=== PATIENT | male | born 1950 | race Caucasian/White ===

== ENCOUNTER 2018-12-24 16:28 | Inpatient (IN) | payer OTHER ==
[~2018-12-24] VITALS: Ht 167.6 cm; Wt 82.6 kg
[2018-12-24] MEDS ORDERED: XANAX 0.25 MG0.25 MG PO ×2 (18:16→18:20)
[2018-12-24] MEDS ORDERED: ASPIR 8181 M1 PO (18:17)
[2018-12-24] MEDS ORDERED: AZELASTINE137 MCG/0. INH (18:22)
[2018-12-24] MEDS ORDERED: FLEXERIL PO (18:24)
[2018-12-24] MEDS ORDERED: CITALOPRAM HBR40 MG PO (18:24)
[2018-12-24] MEDS ORDERED: HYDROCODON-ACE1 EAC5 PO (18:25)
[2018-12-24] MEDS ORDERED: MOBIC15 MG PO (18:26)
[2018-12-24] MEDS ORDERED: BENICAR20 MG PO (18:26)
[2018-12-24] MEDS ORDERED: LISINOPRIL10 MG PO (18:26)
[2018-12-24] MEDS ORDERED: PROSCAR 5MG TABL5 MG PO (18:27)
[2018-12-24] MEDS ORDERED: PRAVACHOL40 MG PO (18:27)
[2018-12-24] MEDS ORDERED: TRAZODONE HCL100 MG PO (18:28)
[2018-12-24] MEDS ORDERED: ZANTAC 150MG T150 MG PO (18:29)
--- NOTE | 2018-12-24 19:06 | NUR ---
PT A DIRECT ADMIT FROM [place]. ADMISSION HX AND ASSESSMENT COMPLETED. ALERT AND ORIENTED. DENIED HAVING ANY CHEST PAIN. SEEN BY DR. ERICKSON. ORDERS NOTED.
[2018-12-24 19:55] VITALS: BP 130/60
[2018-12-24 20:17] LABS: CHOLESTEROL 125 mg/dL (<200); HDL CHOLESTEROL 30 mg/dL (>40); LDL CHOLESTEROL 81 mg/dL (<100); TC:HDL 4.2 Ratio (Not establshd); TRIGLYCERIDE 71 mg/dL (<150); TROPONIN-I 0.09 ng/mL (<0.06); VLDL 14 mg/dL (<40)
[2018-12-24 20:19] LABS: SERUM ASSESSMENT Clear
[2018-12-24 23:54] VITALS: BP 118/58
[2018-12-25 02:52] LABS: ALBUMIN 3.2 g/dL (3.4-5.0); CREATININE 1.2 mg/dL (0.7-1.3); PHOSPHORUS 3.6 mg/dL (2.5-4.9); TROPONIN-I 0.08 ng/mL (<0.06)
[2018-12-25 04:55] VITALS: BP 119/59
--- NOTE | 2018-12-25 05:33 | NUR ---
1900. pt alert and oriented. at bedside. no kasie yg reported. Troponin x 2 0.09 and 0.008. Stand by with ambulation to bathroom. Admission orders acklowledged and orders implemented. pt currently in Heparin drip. Denies nausea or vomiting or any pain. Regularly uses trazodone for sleep but refused last night because pt had not slept previous day. No further c/o reported. anxious about pt well being. Will continue to follow plan of care.
[2018-12-25 08:51] VITALS: BP 127/62
--- NOTE | 2018-12-25 08:56 | EKG ---
[address] [address] ELECTROCARDIOGRAM REPORT Name: MELINA NAVARRO Room #: 210-P ADM IN M.R.#: [id number] ������������������ Admission: 12/24/18 ������������������ Attend Phys: Ness Hopper Discharge: ������������������ Date of : 52 Report #: [id number] ����������������������������������������������������������������� [id number] THIS REPORT FOR: //name// [facility] Test Date: 2018-12-24 Test Time: 18:31:45 Pat Name: MELINA NAVARRO Department: Room: 210 P Gender: M Educational Guidance Counselor: ROBERT : 1950 Requested By: Ness Hopper Order Number: [id number] MD: Charlie Mattson Measurements Intervals [place] Rate: 60 P: 68 VT: 170 QRS: 14 QRSD: 86 T: 62 QT: 424 QTc: 424 Interpretive Statements Sinus rhythm Normal tracing No previous ECG available for comparison Electronically Signed On 12-25-2018 8:56:27 CDT by Charlie Mattson [email or web address] ��������������������������������������������� <ELECTRONICALLY SIGNED> ���������������������������������������� By: Charlie Mattson MD, [facility] ��������������������������������������������� 12/25/18 0856 1831 1831 Charlie Mattson MD, FACC /EPI
[2018-12-25 09:53] VITALS: BP 127/62
[2018-12-25 12:16] VITALS: BP 142/68
[2018-12-25 17:41] VITALS: BP 149/73
--- NOTE | 2018-12-25 17:56 | NUR ---
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 RIGHT GROIN SITE CDI, NO HEMATOMA. PT CONTINUES TO BE ALERT AND ORIENTED, VSS, NO C/O PAIN, DENIES CP, SOB. O2 SATS WNL ON ROOM AIR. WILL ACKNOWLEDGE AND IMPLEMENT ORDERS. CONTINUING TO MONITOR AND FOLLOW POC.
[2018-12-25 19:55] VITALS: BP 134/58
[2018-12-26 00:05] LABS: GLYCOHEMOGLOBIN (HGB A1C) 5.7 % (4.8-5.6)
[2018-12-26 00:15] VITALS: BP 129/65
--- NOTE | 2018-12-26 03:48 | NUR ---
PT POST CARDIAC CATH. ALERT AND ORIENTED. DENIES PAIN VITALS STABLE w/ LOW HR. OFF BEDREST AT 2029. GROIN SITE CLEAN DRY AND INTACT. SINUS RHYTHM/ SINUS SYDNEE ON THE MONITOR. EVENING METOPROLOL HELD, HR 50. ANTICIPATE DC TODAY. UP AD JACLYN. OTHER ASSESSMENTS DOCUMENTED. NO FURTHER C/O REPORTED WILL CONTINUE WITH POC.
[2018-12-26 03:51] LABS: ALBUMIN 3.3 g/dL (3.4-5.0); CREATININE 0.9 mg/dL (0.7-1.3); POTASSIUM 4.1 mmol/L (3.5-5.1); TOTAL BILIRUBIN 0.2 mg/dL (<0.1-1.0); TOTAL PROTEIN 6.1 g/dL (6.4-8.2); TROPONIN-I 0.06 ng/mL (<0.06)
[2018-12-26 04:35] VITALS: BP 148/66
[2018-12-26 05:03] LABS: HEMATOCRIT 39.3 % (42.0-52.0); HEMOGLOBIN 13.6 gm/dL (14.0-18.0); MCH 31.8 pg (26.0-34.0); MCHC 34.7 g/dL (28.0-37.0); MCV 91.5 fL (80.0-100.0); RBC 4.3 mil/uL (4.50-6.00); RDW 13.7 % (10.5-14.5); WBC 7.4 thou/uL (4.0-11.0)
[2018-12-26 08:00] VITALS: BP 137/75
[2018-12-26] MEDS ORDERED: PRAVACHOL40 MG PO (09:02)
[2018-12-26] MEDS ORDERED: CLOPIDOGREL75 MG PO (09:02)
--- NOTE | 2018-12-26 09:23 | EKG ---
[place] [address] [facility] [place] [address] ELECTROCARDIOGRAM REPORT Name: MELINA NAVARRO Room #: 210-P ADM IN M.R.#: [id number] ������������������ Admission: 12/24/18 ������������������ Attend Phys: Ness Hopper Discharge: ������������������ Date of : 52 Report #: [id number] ����������������������������������������������������������������� [id number] THIS REPORT FOR: //name// [facility] Test Date: 2018-12-26 Test Time: 07:29:52 Pat Name: MELINA NAVARRO Department: Room: 210 P Gender: M Physician Relations Manager: ETELVINA : 1950 Requested By: Juliocesar Gregory Order Number: [id number] MD: Charlie Mattson Measurements Intervals [place] Rate: 55 P: 77 CT: 173 QRS: 24 QRSD: 85 T: 64 QT: 434 QTc: 416 Interpretive Statements Sinus rhythm Abnormal R-wave progression, early transition Baseline wander in lead(s) V3 Compared to ECG 12/24/2018 18:31:45 No significant changes Electronically Signed On 12-26-2018 9:23:32 CDT by Charlie Mattson [email or web address] ��������������������������������������������� <ELECTRONICALLY SIGNED> ���������������������������������������� By: Charlie Mattson MD, [facility] ��������������������������������������������� 05/03/09 923 8 8 Charlie Mattson MD, [facility] /EPI
--- NOTE | 2018-12-26 09:35 | CATHLAB ---
[facility] [place] [employer] [place] [address] INVASIVE PROCEDURE REPORT Name: MELINA NAVARRO Room #: 210-P ADM IN M.R.#: [id number] ������������� Admission: 12/24/18 ������������� Attend Phys: Ness Araujo Discharge: ��� ������������� ��� Date of : 52 Date of Service: 12/26/18 0935 �� Report #: [id number] �������� ��������������������������������������������[id number] THIS REPORT FOR: //name// APPROVED REPORT Study performed: 12/25/2018 16:04:07 Patient Details The patient is a 68 year-old male Event Personnel Juliocesar Gregory Reporting Lead, Sabrina Cabrera, Siddharth Mendes RN, Irma Garcia RN, Sarahy Potts RTR, GROCERY SACKER Scrub Procedures Performed Left Heart Cath w/or w/o Coronaries [id number] [facility] [address] w/wo Plasty Single RCA [id number] Indication Non-STEMI , Unstable angina , Chest pain Risk Factors Hypercholesterolemia, Hypertension, Tobacco History () Procedure Narrative The Right Groin^ was infiltrated with 1% Lidocaine subcutaneous anesthesia. A 4FR MULTIPACK JR 4/JL 4/PIG #[id number] sheath was inserted into the RFA^. Coronary angiography was performed using coronary diagnostic catheters. The right coronary system was accessed and visualized with a JR4 catheter. The left coronary system was accessed and visualized with a JL4 catheter. The left ventricle was accessed and visualized with a PIGTAIL catheter. Closure device was deployed with a Fr MYNXGRIP 6/7F #[id number]. The patient tolerated the procedure well and there were no complications associated with the procedure. There was no hematoma. Intraoperative Conscious Sedation Sedation start time: 1613 Case end Time: 1713 Fentanyl 50 mcg Versed 1 mg Fluoro Time: 17.90 minutes Dose: DAP 09790.00 cGycm2 3329 mGy Contrast Type and Amount: Omnipaque 215 ml [facility] [employer] [place] [address] INVASIVE PROCEDURE REPORT Name: KELI NAVARROUGHN Room #: 210-[facility] IN M.R.#: [id number] ������������� Admission: 12/24/18 ������������� Attend Phys: Ness Araujo Discharge: ��� ������������� ��� Date of : 52 Date of Service: 12/26/18 0935 �� Report #: [id number] �������� ��������������������������������������������[id number] Coronary Angiography The patient's coronary anatomy is right dominant. Diagnostic Cath Left Main This is a large caliber vessel, patent with no flow-limiting lesions. LAD The LAD is a moderate size caliber vessel, traversing the anterior wall and wrapping around the apex. There is mild disease in the proximal segment, 20%. Diagonal 1 This is a patent vessel, with no flow-limiting lesions. Circumflex This is a patent vessel, with no flow-limiting lesions. OM1 This is a moderate size caliber vessel, patent with no flow-limiting lesions. This vessel divides into 2 branches as it travels down the lateral wall. Right Coronary This a dominant vessel with a severe stenosis in the ostial/proximal segment, 99%. R PDA This is a patent vessel, with no flow-limiting lesions. RPLV This is a patent vessel, with no flow-limiting lesions. Left Ventriculography The left ventricle is normal in size with normal contractility. The left ventricular ejection fraction is estimated to be >55%. There is mild hypokinesis in the mid to apical inferior wall. Hemodynamics The aortic pressure is 138/75 mmHg with a mean of 98 mmHg. The left ventricular pressure is 162/13 mmHg with a mean of mmHg. The left ventricular end diastolic pressure is 28 mmHg. PCI Technique Lesion Anticoagulation was achieved with Angiomax. Patient was preloaded with Effient. Percutaneous coronary intervention was performed on the ostial/proximal right coronary artery. The lesion stenosis prior to intervention was 99% with MARGARETH 3 flow. A VISTA 6FR JR 4 #[id number] Guide Catheter was used to engage the ostium. A Luge Wire .014 x 182CM #[id number] Interventional Guidewire was used to cross the lesion. BALLOON DILATION A Balloon catheter Elevate Medicalphora RX 2.0 x12 #[id number] was inserted and inflated up to 14.00atm for 19seconds. Additional Inflation: 18.00atm [address] [address] INVASIVE PROCEDURE REPORT Name: MELINA NAVARRO Room #: 210-P [facility] IN M.R.#: [id number] ������������� Admission: 12/24/18 ������������� Attend Phys: Ness Araujo Discharge: ��� ������������� ��� Date of : 52 Date of Service: 12/26/18 0935 �� Report #: [id number] �������� ��������������������������������������������[id number] for 22seconds. Additional Inflation: 18.00atm for 20seconds. A second Euphora 2.5 x 15 was inflated to 14ATM FOR 39 sec. Additional 18ATM for 31sec. STENT DEPLOYMENT A stent RESOLUTE JENNIFER RX 3.0 X 26 #[id number] was inserted and inflated up to 14.00atm for 21seconds. Additional Inflation: 18.00atm for 22seconds. POST STENT DEPLOYMENT BALLOON DILATION A Balloon catheter Euphora NC RX 3.25 x 15 #[id number] was inserted and inflated up to 18.00atm for 21seconds. Additional Inflation: 18atm for 23seconds. Additional Inflation: 20.00atm for 36seconds. Final angiography reveals 20 % stenosis with MARGARETH 3 flow. Conclusion 1. Successful insertion of a drug-eluting stent into the ostial/proximal RCA segment. 2. Mild disease in the LAD. 3. Normal LV systolic function. 4. Recommend dual antiplatelet therapy and aggressive risk factor management, including smoking cessation. ��������������������������������������������� <ELECTRONICALLY SIGNED> ���������������������������������������� By: Juliocesar Gregory MD ��������������������������������������������� 12/26/18934 4 4 Juliocesar Gregory MD /INF
[2018-12-26 10:11] VITALS: BP 137/75
--- NOTE | 2018-12-26 20:19 | NUR ---
ASSUMED CARE OF PT AT 0700. PT A&OX4, UP AD JACLYN. PT VITALS WNL AND PT WAS SINUS SYDNEE ON TELEMETRY. PT GROIN SITE C/D/I WITH NO BLEEDING/HEMATOMA. PT HAD TWO IV'S REMOVED BY ETL ANALYST. TELEMETRY BOX REMOVED. PT COMMUNICATED UNDERSTANDING OF ALL DISCHARGE ORDERS, MEDS AND FOLLOWUP APPTS. PT STATED HE HAD ALL BELONGINGS.
== END 2018-12-26 11:25 | disposition home or self-care (01) | DRG 246 ==
LOC: 2N 16:28 → ENTRNSPT 12-26 11:11 → EDTRNSPTSTS 12-26 11:13 → 2N 12-26 11:25
PROVIDERS: Internal Medicine Cardiovascular Disease; Nurse Practitioner Gerontology; ADMIT Hospitalist
PROC: 4A023N7 Measurement of Cardiac Sampling and Pressure, Left Heart, Percutaneous Approach (ICD-10-PCS; principal; 2018-12-25)
PROC: 027034Z Dilation of Coronary Artery, One Artery with Drug-eluting Intraluminal Device, Percutaneous Approach (ICD-10-PCS; principal; 2018-12-25)
PROC: B2111ZZ Fluoroscopy of Multiple Coronary Arteries using Low Osmolar Contrast (ICD-10-PCS; principal; 2018-12-25)
DX: I21.4 Non-ST elevation (NSTEMI) myocardial infarction (principal); I50.33 Acute on chronic diastolic (congestive) heart failure; K21.9 Gastro-esophageal reflux disease without esophagitis; I10 Essential (primary) hypertension; F17.210 Nicotine dependence, cigarettes, uncomplicated; R91.1 Solitary pulmonary nodule; I27.20 Pulmonary hypertension, unspecified; L40.9 Psoriasis, unspecified; F43.10 Post-traumatic stress disorder, unspecified; M47.896 Other spondylosis, lumbar region; I07.1 Rheumatic tricuspid insufficiency; E78.5 Hyperlipidemia, unspecified; J44.9 Chronic obstructive pulmonary disease, unspecified; Z85.46 Personal history of malignant neoplasm of prostate; Z90.49 Acquired absence of other specified parts of digestive tract; Z98.49 Cataract extraction status, unspecified eye; Z98.52 Vasectomy status; X58.XXXA Exposure to other specified factors, initial encounter; Y93.89 Activity, other specified; Y92.89 Other specified places as the place of occurrence of the external cause; Y99.8 Other external cause status; Z82.49 Family history of ischemic heart disease and other diseases of the circulatory system; Z79.82 Long term (current) use of aspirin; Z79.899 Other long term (current) drug therapy; Z71.6 Tobacco abuse counseling
CPT/HCPCS: 10081